=== PATIENT | female | born 1960 | race Caucasian/White ===

== ENCOUNTER 2019-05-16 10:00 | Outpatient (RCR) | payer OTHER, SELFPAY | END 2019-05-30 15:38 | disposition home or self-care (01) | LOC: PT.CARL 10:00 | PROVIDERS: Visit Provider Orthopaedic Surgery Adult Reconstructive Orthopaedic Surgery | DX: M25.551 Pain in right hip (principal); Z96.641 Presence of right artificial hip joint | CPT/HCPCS: 97110; 97116; 97163 ==

== ENCOUNTER 2021-06-01 18:20 | Emergency (ER) | payer MEDICAID, SELFPAY ==
[2021-06-01 18:21] VITALS: BP 160/98; PULSE 82; RESP 16; TEMP 36.6; O2SAT 98; BMI 25.4
--- NOTE | 2021-06-01 18:40 | XR_ITS ---
PROCEDURE INFORMATION: Exam: XR Right Wrist Exam date and time: 06/01/2021 6:40 PM Age: 61 years old Clinical indication: Injury or trauma; Fall; Swelling (edema); Wrist; Right; Injury date: 06/01/21; Additional info: Injury fell over parking divider TECHNIQUE: Imaging protocol: XR Right wrist. Views: 3 or more views. COMPARISON: No relevant prior studies available. FINDINGS: Bones/joints: Osseous demineralization. Comminuted Colles fracture distal right radius with intra-articular extension. The degenerative change at the 1st metacarpal trapezial junction. Soft tissues: Normal. IMPRESSION: 1. Comminuted Colles fracture distal right radius with intra-articular extension. 2. The degenerative change at the 1st metacarpal trapezial junction.
--- NOTE | 2021-06-01 19:12 | XR_ITS ---
PROCEDURE INFORMATION: Exam: XR Right Forearm Exam date and time: 06/01/2021 7:12 PM Age: 61 years old Clinical indication: Injury or trauma; Fall; Blunt trauma (contusions or hematomas); Arm, lower; Right; Additional info: [place] TECHNIQUE: Imaging protocol: XR Right forearm. Views: 2 views. COMPARISON: CR XR WRIST RT MIN 3V 06/01/2021 7:06 PM FINDINGS: Bones/joints: Comminuted Colles fracture distal right radius with intra-articular extension. Soft tissues: Normal. IMPRESSION: Comminuted Colles fracture distal right radius with intra-articular extension.
--- NOTE | 2021-06-01 19:12 | XR_ITS ---
PROCEDURE INFORMATION: Exam: XR Right Elbow Exam date and time: 06/01/2021 7:12 PM Age: 61 years old Clinical indication: Injury or trauma; Fall; Blunt trauma (contusions or hematomas); Elbow; Right; Additional info: [place] TECHNIQUE: Imaging protocol: XR Right elbow. Views: 1 or 2 views. COMPARISON: CR XR WRIST RT MIN 3V 06/01/2021 7:06 PM FINDINGS: Bones/joints: Normal. Soft tissues: Normal. IMPRESSION: No acute findings.
[2021-06-01 19:33] VITALS: BP 148/82; PULSE 71; O2SAT 98
--- NOTE | 2021-06-01 21:17 | XR_ITS ---
PROCEDURE INFORMATION: Exam: XR Right Wrist Exam date and time: 06/01/2021 9:17 PM Age: 61 years old Clinical indication: Screening exam; Post reduction portable study of right wrist. ; Additional info: Post reduction right wrist TECHNIQUE: Imaging protocol: XR Right wrist. Views: 1 or 2 views. COMPARISON: CR XR WRIST RT MIN 3V 06/01/2021 7:06 PM FINDINGS: Bones/joints: Comminuted fracture distal right radius with intra-articular extension. Some improvement in alignment status post closed reduction. Soft tissues: Normal. IMPRESSION: Comminuted fracture distal right radius with intra-articular extension. Some improvement in alignment status post closed reduction.
[2021-06-01 21:58] VITALS: BP 148/82; PULSE 85; RESP 16; TEMP 36.6; O2SAT 98
--- NOTE | 2021-06-23 21:03 | HMH.EDGENADL ---
ED Disposition Clinical Impression: Distal radius fracture, right Qualifiers: Encounter type: initial encounter Fracture type: closed Fracture morphology: other intra-articular Qualified Code(s): S52.571A - Other intraarticular fracture of lower end of right radius, initial encounter for closed fracture Wrist fracture, right Qualifiers: Encounter type: initial encounter Fracture type: closed Qualified Code(s): S62.101A - Fracture of unspecified carpal bone, right wrist, initial encounter for closed fracture Disposition: Home, Self-Care Condition on Discharge: Good Additional Instructions: Contact Dr. Mcdonald's office in the morning for outpatient appointment, take motrin/tylenol for mild pain, take oxycodone for severe pain. Return with new or worsening symptoms such as pain, numbness, decreased sensation. Use sling for comfort, avoid bearing weight in the right upper extremity. Referrals: Wesley Mcdonald MD [Staff Physician] - Zen Romeo [Primary Care Provider] - - Critical Care Critical Care Time: No Attestation: On 06/01/21, the high probability of a clinically significant, sudden or life threatening deterioration of the following system(s) required my full and direct attention, intervention and personal management. The time I documented below is in addition to time spent performing reported procedures but includes the following listed in this critical care notation. Medical Decision Making - Medical Records Medical records reviewed: Yes: I reviewed the patient's medical records. - Juan Manuel Inquiry Pt receiving controlled substance: No Vital Signs: 06/01/21 18:21 06/01/21 19:33 06/01/21 21:58 Temperature 98 F 98 F Temperature Source Oral Pulse Rate 71 85 Pulse Rate [Radial] 82 Respiratory Rate 16 16 Blood Pressure 148/82 H 148/82 H Blood Pressure [Right Arm] 160/98 H Blood Pressure Mean [Right Arm] 118 Blood Pressure Position [Right Arm] Sitting 02 Sat by Pulse Oximetry 98 98 Oxygen Delivery Method Room Air Room Air Room Air Orders (Tests/Meds): ED MEDICATIONS Discontinued Medications Generic Name Dose Route Start Last Admin Trade Name Freq PRN Reason Stop Dose Admin Acetaminophen/Codeine Phosphate 1 hang 06/01/21 21:28 06/01/21 21:34 Acetaminophen 300mg W/Codeine 30mg Take Home Pack (6) PO 06/01/21 21:29 1 hang ONCE ONE Administration Morphine Sulfate 4 mg 06/01/21 19:09 12/06/21 19:35 Morphine 4mg/Ml Syringe IV 07/01/21 19:08 4 mg Q2HP PRN Administration Severe Pain Morphine Sulfate 4 mg 06/01/21 21:28 06/01/21 21:36 Morphine 4mg/Ml Syringe IV 06/01/21 21:29 4 mg ONCE ONE Administration Ondansetron HCl 4 mg 06/01/21 19:09 06/01/21 19:35 Ondansetron 4mg/2ml Vial IV 07/01/21 19:08 4 mg ONCE PRN Administration Nausea And Vomiting Oxycodone HCl 5 mg 06/01/21 19:07 06/01/21 19:38 Oxycodone 5mg Immediate Release Tablet PO 06/01/21 19:08 5 mg ONCE ONE Administration Oxycodone HCl 5 mg 06/01/21 21:29 06/01/21 21:39 Oxycodone 5mg Immediate Release Tablet PO 06/01/21 21:30 Not Given ONCE ONE Oxycodone/Acetaminophen 1 each 06/01/21 21:37 06/01/21 21:37 Oxycodone 5mg W/Apap 325mg Tablet PO 06/01/21 21:38 1 each ONCE ONE Administration - Radiology Data #2 Image(s): Wrist Image Reviewed: Yes I reviewed the patient's radiology results IMPRESSION: Comminuted fracture distal right radius with intra-articular extension. Some improvement in alignment status post closed reduction. #1 Image(s): Wrist Image Reviewed: Yes I reviewed the patient's radiology results MPRESSION: 1. Comminuted Colles fracture distal right radius with intra-articular extension. 2. The degenerative change at the 1st metacarpal trapezial junction. Medical Decision Narrative: 61-year-old female who is presenting to the ED with right wrist pain after mechanical fall from standing. Differenti
== END 2021-06-01 22:05 | disposition home or self-care (01) ==
PROVIDERS: Emergency Provider Emergency Medicine; PCP Family Medicine
DX: S52.501A Unspecified fracture of the lower end of right radius, initial encounter for closed fracture (principal); W01.0XXA Fall on same level from slipping, tripping and stumbling without subsequent striking against object, initial encounter; Y92.480 Sidewalk as the place of occurrence of the external cause; Y93.01 Activity, walking, marching and hiking; Z96.641 Presence of right artificial hip joint
CPT/HCPCS: 29125; 73070; 73090; 73100; 73110; 96375; 96376; 99282; J2405

== ENCOUNTER → 2021-06-02 15:55 | Outpatient (CLI) | payer MEDICAID, SELFPAY ==
--- NOTE | 2021-06-02 16:06 | CT_ITS ---
PROCEDURE INFORMATION: Exam: CT Right Upper Extremity Without Contrast, Wrist Exam date and time: 06/02/2021 4:06 PM Age: 61 years old Clinical indication: Abnormal findings; Abnormal imaging study of the limbs; Fracture of right wrist; Additional info: RT wrist fracture TECHNIQUE: Imaging protocol: CT of the Right upper extremity without contrast was performed. Exam focused on the wrist. 3D rendering (Not supervised by radiologist): MIP and/or 3D reconstructed images were created by the technologist. Radiation optimization: All CT scans at this facility use at least one of these dose optimization techniques: automated exposure control; mA and/or kV adjustment per patient size (includes targeted exams where dose is matched to clinical indication); or iterative reconstruction. COMPARISON: CR XR WRIST RT 2V 06/01/2021 9:02 PM FINDINGS: Bones/joints: Redemonstration of a severely comminuted and impacted distal radial intra-articular metaphyseal/epiphyseal fracture. There is impaction of fracture fragments of approximately 1.2 cm. There are displaced cortical fractured fragments appreciated (image 28 series 601). No other acutely displaced fractures are identified. No definitive dislocation. No aggressive osseous lesions. Soft tissues: Significant swelling at the wrist. IMPRESSION: REDEMONSTRATION OF A SEVERELY COMMINUTED, IMPACTED, AND INTRA-ARTICULAR DISTAL RADIAL METAPHYSEAL/EPIPHYSEAL FRACTURE WITH VOLAR ANGULATION OF THE DISTAL FRACTURE FRAGMENTS. NOTE THAT THERE ARE DISPLACED CORTICAL FRACTURE FRAGMENTS WITHIN THE FRACTURE. CONSIDER ORTHOPEDIC SURGERY CONSULT.
== END ==
PROVIDERS: PCP Family Medicine; Visit Provider Orthopaedic Surgery
DX: S52.501A Unspecified fracture of the lower end of right radius, initial encounter for closed fracture (principal)
CPT/HCPCS: 73200

== ENCOUNTER → 2021-06-03 11:18 | Outpatient (CLI) | payer MEDICAID, SELFPAY ==
[2021-06-03 11:35] LABS: Basophils % 0.5 % (0.1-2.0); Eosinophils # 0.1 K/mm3 (0.0-0.4); Eosinophils % 1.3 % (0.1-12.0); Hematocrit 37.6 % (37.0-47.0); Hemoglobin 13.2 g/dL (12.2-16.2); Lymphocytes # 1.6 K/mm3 (0.7-4.5); Lymphocytes % 18.6 % (10-50); Mean Corpuscular HGB Conc 35.2 g/dL (31.8-35.4); Mean Corpuscular Hemoglobin 32.6 pg (27.0-31.2); Mean Corpuscular Volume 92.4 fl (81-99); Mean Platelet Volume 8.8 fl (7.4-10.4); Monocytes # 0.8 K/mm3 (0.1-1.0); Monocytes % 9.7 % (1.7-9.3); Neutrophils # 6.1 K/mm3 (1.8-7.8); Platelet Count 272 K/mm3 (142-424); Red Blood Count 4.07 M/mm3 (4.20-5.40); White Blood Count 8.7 K/mm3 (4.8-10.8)
[2021-06-03 12:46] LABS: Alanine Aminotransferase 36 U/L (12-78); Albumin Level 4.6 g/dl (3.5-5.0); Albumin/Globulin Ratio 1.6 (1.1-1.8); Alkaline Phosphatase 96 U/L (38-126); Anion Gap 17.6 mEq/L (5-15); Aspartate Amino Transferase 55 U/L (14-36); Bilirubin,Total 0.9 mg/dl (0.2-1.3); Blood Urea Nitrogen 7 mg/dl (7-17); Calcium 9.5 mg/dl (8.4-10.2); Carbon Dioxide 21 mmol/L (22.0-30.0); Chloride 93 mmol/L (98-107); Estimated Glomerular Filt Rate 101 ml/min (>60); GFR (African American) 122 ML/MIN (>60); Globulin 2.8 g/dL (1.3-3.2); Glucose 109 mg/dl (74-100); Potassium 4.6 mmoL/L (3.5-5.1); Sodium 127 mmol/L (136-145); Total Protein,Serum 7.4 g/dl (6.3-8.2)
== END ==
PROVIDERS: Visit Provider Orthopaedic Surgery
DX: Z01.818 Encounter for other preprocedural examination (principal); Z11.52 Encounter for screening for COVID-19; S52.571D Other intraarticular fracture of lower end of right radius, subsequent encounter for closed fracture with routine healing
CPT/HCPCS: 36415; 80053; 85025; C9803; U0003; U0005

== ENCOUNTER 2021-06-04 11:50 | Day surgery (SDC) | payer MEDICAID, SELFPAY ==
[2021-06-03 10:59] VITALS: BMI 25.4
[2021-06-04] VITALS (11 sets, daily range): BP systolic 136–173; BP diastolic 82–93; PULSE 74–100; RESP 16–18; TEMP 36.3–43; O2SAT 89–95
--- NOTE | 2021-06-04 12:55 | HMH.ANESCL ---
[facility] Anesthesia Checklist - Patient Identification Patient Identification: Arm Band, Verbal (Name & ) - Structural Data Admitted From: Home Planned Operative Procedure/s: ORIF Right Wrist Consent for Planned Operative Procedure(s) Verified: Yes Verified Documents: Surgical Consent - NPO Status Verified Time NPO: 00:00 - Chart Verification Results Verified: CBC, BMP - Additional verifications Anesthesia Reactions: No Hx Blood Transfusions: No Blood Transfusion Reaction: No - Cardiovascular Assessment Heart Sounds: S1 & S2 - Airway Assessment C-Spine Mobility Assessed: Yes TMJ Mobility Assessed: Yes Dentition: Good Dentition - Neurological Assessment Level of Consciousness: Awake, Alert, Appropriate - Anesthesia Plan Anesthesia Risk discussed: Yes ASA Class: II Anesthesia Type: General w/block [facility] History I have reviewed the patient's past medical history: Yes Medical History: Reports:: Cancer (breast) Denies:: Diabetes Mellitus Type 1, Diabetes Mellitus Type 2, Hypertension, Internal Pacemaker, MRSA, Seizures *Have you ever received a pneumonia vaccine?: Yes *Have you received a flu vaccine this season?: No Other Medical History: Denies: Blood Transfusion Reaction Anesthesia experience/problems:: none Laterality Cases: Left: Breast Biopsy, Mastectomy, Right: Total Hip Replacement Other Surgeries: Yes: Colonoscopy. No: Pacemaker Amputation: No Fractures: Yes - *Social History Last grade of school completed: High school graduate Smoking Status: Never smoker Alcohol Intake: never Alcohol Intake Frequency:: 3 or more drinks per day Substance Use Type: denies use *Occupational Status:: retired Housing: house Household Members: spouse *Travel in the last 8 weeks: None Family Hx:: Cancer, Hyperlipidemia, Hypertension
--- NOTE | 2021-06-04 13:47 | XR_ITS ---
PROCEDURE: XR WRIST RT 2V CLINICAL INDICATION: ORIF RIGHT WRIST COMPARISON: CR XR WRIST RT 2V from 06/01/2021 CR XR WRIST RT MIN 3V from 06/01/2021 FINDINGS: Status post ORIF distal radial fracture. Volar bone plate is present with good alignment of the fracture fragments. Fluoroscopy time: 0.9 minutes IMPRESSION: Status post ORIF distal radial fracture with good alignment with fluoroscopic assistance Dictated by: Linus Colón MD 06/04/2021 16:39 Linus Colón MD in [place] 06/04/2021 16:39
--- NOTE | 2021-06-04 17:02 | P.PN_ITS ---
[facility] Anesthesia Record Part I Intake, IV Amount: 1,500 Estimated blood loss (mL): 10 Urine output (mL): 0 Blood Pressure: 165/85 SaO2: 92 Pulse Rate: 97 Respiratory Rate: 16 Temperature: 98 F Patient is:: Drowsy, Stable Stable to PACU at:: 17:00
--- NOTE | 2021-06-04 21:11 | HMH.OPNOTE ---
Date of procedure: 06/04/21 Pre-op Diagnosis:: Closed, comminuted, displaced intra-articular fracture, right distal radius Post-op Diagnosis:: Same Procedure performed:: Open reduction and internal fixation right distal radius with volar locking plate. Surgeon:: Wesley Mcdonald MD Senior Abap Developer(s):: Filomena Shukla PA-C [employer] SPECIALIST:: Myron Ann Anesthesia: regional (Supraclavicular nerve block), LMA Estimated blood loss (mL): 5 Clinical Note:: Patient is a 61-year-old right-hand dominant female who sustained a closed, comminuted and displaced intra-articular fracture of the right distal radius 3 days ago when she tripped over a concrete block and fell onto outstretched right hand while walking through the [employer] [place] carrying bags. Evaluation including x-rays and CT scan of the right wrist showed a closed, comminuted and displaced intra-articular fracture of the right distal radius. The fracture was extending into the radiocarpal and distal radioulnar joints. Following a detailed discussion with the patient and her about the management options including both nonsurgical and surgical, patient elected to proceed with surgical remediation. The operative side was marked and initialed by me. Patient understood the risks, agreed to proceed with surgery, signed the consent form and no guarantees or assurances were given or implied. Please refer to my office note for full details. Operative findings:: Displaced, comminuted and unstable intra-articular fracture of the right distal radius as noted on the preoperative imaging. Satisfactory reduction and stable fixation was obtained during surgery. Significant void at the fracture site after fracture reduction and fixation was filled with Vitoss bone graft substitute. Bone quality is soft/osteoporotic. Operative note:: After appropriate workup, the patient is brought to the hospital for surgery. On the day of surgery, I met the patient in the preoperative area and again discussed the details of the procedure, risks and benefits, alternatives and the expected outcomes. The complications discussed include but are not limited to infection, bleeding, injury to nerves, tendons and blood vessels, incisional scar (cosmesis), DVT/PE, malunion, nonunion/delayed union, loss of position, re-fracture, wrist/finger stiffness, CRPS (complex regional pain syndrome- pain, sensory and temperature changes, swelling and stiffness), painful/prominent hardware, loss of fixation/hardware failure, incomplete relief of pain, incomplete return of function, posttraumatic arthritis and likely need for further surgery in future and also the risks of anesthesia including heart attack, stroke, and . I have also explained how additional surgery may be required if there are any complications or the fracture fails to heal. We have also discussed the likely need for use of either autologous bone graft or synthetic bone graft substitutes which will be determined at the time of surgery. We have also discussed the postoperative pain management, recovery and rehabilitation, immobilization required, the likely need for physical therapy, the possibility of stiffness, chronic pain and we've also discussed the option of nonsurgical treatment. Patient expressed a full understanding and wished to proceed with surgery as planned. The operative site/side was marked and initialed by me. Patient understood the risks, agreed to proceed with surgery and no guarantees or assurances were given or implied. Patient was brought to the operating room and placed supine on the table. The right upper extremity was placed over an arm table. All the bony prominences were well padded. A general anesthesia was administered by the oil expeller. Prior to that patient also received a supraclavicular nerve block in the pre-anesthetic area. A well-padded tourniquet cuff was applied over the right upper arm. The right upper extremity was prepped and draped in the usual st
--- NOTE | 2021-06-08 13:05 | P.PN_ITS ---
[facility] Anesthesia Record Part II Discharge Time: 17:31 Destination: Surgical Day Care (OP Surgery) PACU nurse assessment reviewed?: Yes Patient Condition:: Good Anesthesia Complications:: None Swallowing reflex intact?: Yes Cyanosis?: No Blood Pressure: 153/86 Pulse Rate: 87 Temperature: 97.8 F Mental Status: Alert & Oriented Pain level:: 0 Nausea and/or vomitting:: None Intake, IV Amount: 0
[2021-06-08 13:06] VITALS: BP 153/86; PULSE 87; TEMP 36.6
== END 2021-06-04 18:00 | disposition home or self-care (01) ==
LOC: OR 11:51
PROVIDERS: PCP Family Medicine; Visit Provider Orthopaedic Surgery
PROC: (CPT 25608; principal; 2021-06-04 13:15)
DX: S52.571A Other intraarticular fracture of lower end of right radius, initial encounter for closed fracture (principal); W01.0XXA Fall on same level from slipping, tripping and stumbling without subsequent striking against object, initial encounter; Y93.89 Activity, other specified; Y92.481 Parking lot as the place of occurrence of the external cause
CPT/HCPCS: 25608; 73100; 76000; 96374; C1713; C1769; C1776; J2405

== ENCOUNTER → 2021-06-16 11:23 | Outpatient (CLI) | payer MEDICAID, SELFPAY ==
--- NOTE | 2021-06-16 11:28 | XR_ITS ---
PROCEDURE: XR WRIST RT MIN 3V CLINICAL INDICATION: sp ORIF RT wrist; 20degree lateral off the table COMPARISON: CR XR WRIST RT 2V from 06/01/2021 CR XR WRIST RT MIN 3V from 06/01/2021 CR XR WRIST RT 2V from 06/04/2021 FINDINGS: Good alignment status post ORIF distal radius with volar bone plate in good position. Cast is place. Osteoarthritic change 1st carpal metacarpal joint. Other findings:None. IMPRESSION: Status post ORIF distal radius with good alignment Dictated by: Linus Colón MD 06/16/2021 17:17 Linus Colón MD in [place] 06/16/2021 17:17
== END ==
PROVIDERS: PCP Family Medicine; Visit Provider Orthopaedic Surgery
DX: Z09 Encounter for follow-up examination after completed treatment for conditions other than malignant neoplasm (principal); S52.501D Unspecified fracture of the lower end of right radius, subsequent encounter for closed fracture with routine healing; S62.101D Fracture of unspecified carpal bone, right wrist, subsequent encounter for fracture with routine healing
CPT/HCPCS: 73110

== ENCOUNTER → 2021-07-09 09:02 | Outpatient (CLI) | payer MEDICAID, SELFPAY ==
--- NOTE | 2021-07-09 09:12 | XR_ITS ---
FINAL REPORT CLINICAL HISTORY: RT wrist pain f/u out of cast COMPARISON: 06/16/2021 FINDINGS: RIGHT WRIST Three views demonstrate a comminuted fracture of the distal radius with postoperative changes of ORIF. There is no change in the alignment. No complication is identified. There are mild degenerative changes. IMPRESSION: Fracture as above. Reviewed, Interpreted and Dictated by Brain Morales III, MD Transcribed by Amee Massey Authenticated by Brain Morales III, MD on 07/09/2021 10:05:39 AM [facility]
== END ==
PROVIDERS: PCP Family Medicine; Visit Provider Orthopaedic Surgery
DX: S62.101A Fracture of unspecified carpal bone, right wrist, initial encounter for closed fracture (principal)
CPT/HCPCS: 73110

== ENCOUNTER 2021-07-09 09:51 | Outpatient (RCR) | payer MEDICAID, SELFPAY | END 2021-07-09 10:47 | disposition home or self-care (01) | LOC: OT 09:51 | PROVIDERS: Visit Provider Orthopaedic Surgery | DX: S62.101D Fracture of unspecified carpal bone, right wrist, subsequent encounter for fracture with routine healing (principal); S52.501D Unspecified fracture of the lower end of right radius, subsequent encounter for closed fracture with routine healing | CPT/HCPCS: 97763 ==

== ENCOUNTER → 2021-08-04 10:16 | Outpatient (CLI) | payer MEDICAID, SELFPAY ==
--- NOTE | 2021-08-04 10:20 | XR_ITS ---
FINAL REPORT CLINICAL HISTORY: ORIF Rt wrist COMPARISON: July 09, 2021 FINDINGS: 3 views of the right wrist were obtained. There is a comminuted fracture of the distal radius with changes from ORIF. The alignment is stable. There is no significant healing. Mild degenerative change is present. There is soft tissue swelling. IMPRESSION: Distal radius fracture with changes from ORIF. No significant healing. Reviewed, Interpreted and Dictated by Brain Morales III, MD Transcribed by Michael Goldstein Authenticated by Brain Morales III, MD on 08/04/2021 12:34:48 PM [facility]
== END ==
PROVIDERS: PCP Family Medicine; Visit Provider Orthopaedic Surgery
DX: S52.501A Unspecified fracture of the lower end of right radius, initial encounter for closed fracture (principal); S62.101A Fracture of unspecified carpal bone, right wrist, initial encounter for closed fracture
CPT/HCPCS: 73110

== ENCOUNTER 2021-09-01 13:00 | Outpatient (RCR) | payer MEDICAID, SELFPAY ==
--- NOTE | 2021-07-21 14:08 | HMH.OTOPEV ---
OT Inpatient Evaluation Rehab OT Outpatient Eval Start: 07/21/21 13:36 Freq: Status: Active Protocol: Document 07/21/21 13:43 [email or web address] (Rec: 07/21/21 14:08 [email or web address] [id number]) Electronically Signed By Yudy Mathews OT 07/21/21 13:43 Outpatient Therapy Subjective History Subjective History 61 year old female who sustained a closed, comminuted and displaced intra-articular fracture of the right distal radius when she tripped over a concrete block and fell onto outstretched right hand while walking through the dscovered lot carrying bags. Patient recieved an open reduction and internal fixation right distal radius with volar locking plate on . Patient is currently 6 weeks out this date during evaluation. Chief Complaint Pain,Stiff,Weakness,Decreased Supervisor Finishing Department Strength Symptom Type Ache Symptoms Relieved By Ice,Brace/Support Symptoms Aggravated By Physical Activity Prior Functional Limitations None Current Functional Limitations Reaching,Lifting Symptom Description Intermittent Level of pain today (0-10) 0 Pain scale - at its best (0-10) 0 Pain scale - at its worst (0-10) 2 Wrist/Hand Eval Wrist Range of Motion Right Wrist Extension Active Range of Motion ( 40 degrees) Wrist Flexion Active Range of Motion ( 40 degrees) Wrist Radial Deviation Active Range of 10 Motion (degrees) Wrist Ulnar Deviation Active Range of 30 Motion (degrees) Forearm Supination Active Range of 80 Motion (degrees) Forearm Pronation Active Range of Motion 90 (degrees) Wrist Manual Muscle Testing Right Wrist Extension Strength Grade 2 Poor Wrist Flexion Strength Grade 2 Poor Wrist Radial Deviation Strength Grade 2 Poor Wrist Ulnar Deviation Strength Grade 2 Poor Forearm Supination Strength Grade 2 Poor Forearm Pronation Strength Grade 2 Poor Supervisor Finishing Department/Pinch Strength Left Supervisor Finishing Department Strength Measurement (lbs) 60 Right Supervisor Finishing Department Strength Measurement (lbs) 35 OT Outpatient Assessment Impairments Problems/Impairments Impaired Range of Motion, Impaired Strength,Impaired Endurance,Subjective C/O Pain Prognosis Rehab Potential Good C
--- NOTE | 2021-08-18 14:27 | HMH.RHREAS ---
Rehab Reassessment Rehab OP Re-assessment Start: 08/18/21 13:54 Freq: Status: Active Protocol: Document 08/18/21 13:55 [email or web address] (Rec: 08/18/21 14:27 [email or web address] [id number]) Electronically Signed By Yudy Mathews, OT 08/18/21 13:55 Rehab Re-assessment Subjective Subjective My wrist is moving around better. Objective Objective Notes Patient has been participating in skilled OP OT services 2x/ wk for the past 4 weeks s/p ORIF rt wrist for distal radius fx. PROM, AROM and strengthening has been addressed since evaluation per protocol. Assessment Progress Assessment Progressing as Expected Assessment Notes Evaluation 07/21/20 AROM of R UE wrist ext: 40 flex: 40 RD: 10 UD: 30 Sup: 80 Pro: 90 L conservation educator strength: 60# R conservation educator strength: 35# Re-assessment on 08/18/21 AROM of R UE wrist ext: 45 flex: 50 RD: 13 UD: 30 Sup: 80 Pro: 90 L conservation educator strength: 60# R conservation educator strength: 40# Patient goals met Pain at worst 0/10 AROM of wrist flexion R UE conservation educator strength Goals Not Met AROM of RD and SUP Revised Goals AROM of R UE wrist ext: 60 flex: 60 RD: 15 Sup: 90 Pro: 90 R conservation educator strength: 50# Plan Plan Continue POC Frequency of Therapy 2x/wk Duration of therapy 4 weeks Time and Billing Re-Eval Time 15 Re-Eval Billing Units 1 PHYSICIAN CERTIFICATION: I certify the specified therapy services for Deyanira Sauceda are required, authorized, and reviewed every 30 days.
== END 2021-09-29 09:31 | disposition home or self-care (01) ==
LOC: OT 13:00
PROVIDERS: PCP Family Medicine; Visit Provider Orthopaedic Surgery
DX: S52.501D Unspecified fracture of the lower end of right radius, subsequent encounter for closed fracture with routine healing (principal); S62.101D Fracture of unspecified carpal bone, right wrist, subsequent encounter for fracture with routine healing
CPT/HCPCS: 97010; 97014; 97035; 97110; 97140; 97164; 97165; G0283

== ENCOUNTER → 2021-09-15 09:34 | Outpatient (CLI) | payer MEDICAID, SELFPAY ==
--- NOTE | 2021-09-15 09:38 | XR_ITS ---
FINAL REPORT CLINICAL HISTORY: right wrist fracture COMPARISON: 08/04/2021 FINDINGS: RIGHT WRIST Three views demonstrate side plate and screws securing healed fracture deformity distal radial metaphysis. Underlying sclerosis is identified. Hardware is unchanged in position. There is mild narrowing of the radiocarpal joint. IMPRESSION: Postsurgical changes as detailed above. Reviewed, Interpreted and Dictated by Armando Cobb MD Transcribed by Amee Massey Authenticated by Armando Cobb MD on 09/15/2021 01:54:03 PM [facility]
== END ==
PROVIDERS: PCP Family Medicine; Visit Provider Orthopaedic Surgery
DX: S52.501A Unspecified fracture of the lower end of right radius, initial encounter for closed fracture (principal); S62.101A Fracture of unspecified carpal bone, right wrist, initial encounter for closed fracture
CPT/HCPCS: 73110

== ENCOUNTER → 2021-10-06 11:39 | Outpatient (CLI) | payer MEDICAID, SELFPAY ==
[2021-10-06 14:17] LABS: Basophils % 0.8 % (0.1-2.0); Eosinophils # 0.2 K/mm3 (0.0-0.4); Eosinophils % 4.9 % (0.1-12.0); Hematocrit 42.6 % (37.0-47.0); Hemoglobin 13.9 g/dL (12.2-16.2); Lymphocytes # 1.7 K/mm3 (0.7-4.5); Lymphocytes % 35.8 % (10-50); Mean Corpuscular HGB Conc 32.6 g/dL (31.8-35.4); Mean Corpuscular Hemoglobin 32.5 pg (27.0-31.2); Mean Corpuscular Volume 99.8 fl (81-99); Mean Platelet Volume 9.1 fl (7.4-10.4); Monocytes # 0.3 K/mm3 (0.1-1.0); Monocytes % 6.9 % (1.7-9.3); Neutrophils # 2.5 K/mm3 (1.8-7.8); Neutrophils % 51.5 % (37.0-80.0); Platelet Count 273 K/mm3 (142-424); Red Blood Count 4.27 M/mm3 (4.20-5.40); White Blood Count 4.8 K/mm3 (4.8-10.8)
[2021-10-06 14:29] LABS: Alanine Aminotransferase 48 U/L (12-78); Albumin Level 4.6 g/dl (3.5-5.0); Albumin/Globulin Ratio 1.7 (1.1-1.8); Alkaline Phosphatase 84 U/L (38-126); Anion Gap 11.5 mEq/L (5-15); Aspartate Amino Transferase 59 U/L (14-36); Bilirubin,Total 1.2 mg/dl (0.2-1.3); Blood Urea Nitrogen 8 mg/dl (7-17); Calcium 9.7 mg/dl (8.4-10.2); Carbon Dioxide 29 mmol/L (22.0-30.0); Chloride 100 mmol/L (98-107); Estimated Glomerular Filt Rate 125 ml/min (>60); GFR (African American) 151 ML/MIN (>60); Globulin 2.7 g/dL (1.3-3.2); Glucose 118 mg/dl (74-100); Potassium 4.5 mmoL/L (3.5-5.1); Sodium 136 mmol/L (136-145); Total Protein,Serum 7.3 g/dl (6.3-8.2)
[2021-10-07 08:38] LABS: Hepatitis B Surface Antigen Negative (Negative)
[2021-10-08 22:08] LABS: QuantiFERON-TB Gold Plus Negative (Negative)
== END ==
PROVIDERS: Visit Provider Nurse Practitioner Family
DX: L40.0 Psoriasis vulgaris (principal)
CPT/HCPCS: 36415; 80053; 85025; 86480; 87340

== ENCOUNTER → 2021-11-10 09:16 | Outpatient (CLI) | payer MEDICAID, SELFPAY ==
[2021-11-10 14:34] LABS: Cholesterol 221 mg/dl (140-200); Triglycerides 89 mg/dl (30-150); VLDL Cholesterol 18 mg/dL (0-40)
[2021-11-10 14:40] LABS: Hemoglobin A1C 5.4 % (4.0-6.0)
[2021-11-10 14:44] LABS: Chol/HDL Ratio 1.6 (1-3.5); HDL Cholesterol 135 mg/dl (40-60)
[2021-11-10 14:54] LABS: Free T4 (Free Thyroxine) 0.75 ng/dl (0.78-2.19)
[2021-11-10 14:57] LABS: Thyroid Stimulating Hormone 4.07 uIU/mL (0.465-4.68)
== END ==
PROVIDERS: Visit Provider Nurse Practitioner Family
DX: Z00.00 Encounter for general adult medical examination without abnormal findings (principal); Z13.29 Encounter for screening for other suspected endocrine disorder; Z13.1 Encounter for screening for diabetes mellitus; Z68.25 Body mass index [BMI] 25.0-25.9, adult; Z79.899 Other long term (current) drug therapy
CPT/HCPCS: 36415; 80061; 83036; 84439; 84443

== ENCOUNTER 2023-09-30 12:21 | Outpatient (CLI) | payer MEDICARE, SELFPAY ==
[2023-09-30 12:44] LABS: Basophils # 0.1 K/mm3 (0-0.2); Basophils % 1.6 % (0.1-2.0); Eosinophils # 0.1 K/mm3 (0.0-0.4); Eosinophils % 1.9 % (0.1-12.0); Hematocrit 43.6 % (37.0-47.0); Hemoglobin 14.1 g/dL (12.2-16.2); Lymphocytes # 1.8 K/mm3 (0.7-4.5); Mean Corpuscular HGB Conc 32.4 g/dL (31.8-35.4); Mean Corpuscular Hemoglobin 33.4 pg (27.0-31.2); Mean Corpuscular Volume 103.3 fl (81-99); Mean Platelet Volume 7.9 fl (7.4-10.4); Monocytes # 0.5 K/mm3 (0.1-1.0); Monocytes % 7.7 % (1.7-9.3); Neutrophils # 3.7 K/mm3 (1.8-7.8); Neutrophils % 59.9 % (37.0-80.0); Platelet Count 274 K/mm3 (142-424); Red Blood Count 4.22 M/mm3 (4.20-5.40); Red Cell Distribution Width 13.1 % (11.5-17.5); White Blood Count 6.2 K/mm3 (4.8-10.8)
[2023-09-30 13:07] LABS: Alanine Aminotransferase 27 U/L (12-78); Albumin Level 4.8 g/dl (3.5-5.0); Albumin/Globulin Ratio 1.8 (1.1-1.8); Alkaline Phosphatase 106 U/L (38-126); Anion Gap 12.9 mEq/L (5-15); Aspartate Amino Transferase 41 U/L (14-36); Bilirubin,Total 1.3 mg/dl (0.2-1.3); Blood Urea Nitrogen 9 mg/dl (7-17); Calcium 9.8 mg/dl (8.4-10.2); Carbon Dioxide 27 mmol/L (22.0-30.0); Chloride 99 mmol/L (98-107); Estimated Glomerular Filt Rate 84 ml/min (>60); GFR (African American) 102 ML/MIN (>60); Globulin 2.7 g/dL (1.3-3.2); Glucose 108 mg/dl (74-100); Potassium 3.9 mmoL/L (3.5-5.1); Sodium 135 mmol/L (136-145); Total Protein,Serum 7.5 g/dl (6.3-8.2)
[2023-10-04 16:59] LABS: QuantiFERON-TB Gold Plus Negative (Negative)
== END 2023-09-30 23:59 ==
LOC: LAB 12:23
PROVIDERS: Visit Provider Nurse Practitioner Family
DX: Z79.899 Other long term (current) drug therapy (principal)
CPT/HCPCS: 36415; 80053; 85025; 86480